=== PATIENT | female | born 1980 | race Caucasian/White ===

== ENCOUNTER 2017-09-29 17:11 | Inpatient (IN) | payer OTHER ==
[2017-09-29 18:13] LABS: HEMATOCRIT 43.5 % (36.0-47.0); MEAN CORPUSCULAR HEMOGLOBIN 32.6 pg (27.0-33.0); MEAN CORPUSCULAR HGB CONC 34.5 g/dl (32.0-36.5); MEAN CORPUSCULAR VOLUME 94.6 fl (80.0-96.0); PLATELET COUNT, AUTOMATED 288 10^3/uL (150-450); RED CELL DISTRIBUTION WIDTH 12.6 % (11.5-14.5); WHITE BLOOD COUNT 5.9 10^3/uL (4.0-10.0)
[2017-09-29 18:29] LABS: CONTROL LINE HCG INT CTR LINE PRESENT; HCG, SERUM QUALITATIVE NEGATIVE (NEGATIVE)
[2017-09-29 18:34] LABS: AMPHETAMINES LEVEL URINE POSITIVE (NEGATIVE); BARBITURATES URINE NEGATIVE (NEGATIVE); BENZODIAZEPINES URINE NEGATIVE (NEGATIVE); CANNABINOIDS URINE POSITIVE (NEGATIVE); COCAINE METABOLITE URINE NEGATIVE (NEGATIVE); METHADONE URINE NEGATIVE (NEGATIVE); OPIATES URINE NEGATIVE (NEGATIVE); PHENCYCLIDINE URINE NEGATIVE (NEGATIVE)
[2017-09-29 18:45] LABS: ACETAMINOPHEN LEVEL 2.5 UG/ML (10.0-30.0); ALBUMIN 3.7 GM/DL (3.2-5.2); ALBUMIN/GLOBULIN RATIO 0.95 (1.00-1.93); ALKALINE PHOSPHATASE 177 U/L (45-117); ALT/SGPT 73 U/L (12-78); ANION GAP 10 MEQ/L (8-16); AST/SGOT 99 U/L (7-37); BILIRUBIN,DIRECT 0.1 MG/DL (0.0-0.2); BILIRUBIN,TOTAL 0.2 MG/DL (0.2-1.0); BLOOD UREA NITROGEN 10 MG/DL (7-18); CALCIUM LEVEL 8.6 MG/DL (8.5-10.1); CARBON DIOXIDE LEVEL 24 MEQ/L (21-32); CHLORIDE LEVEL 110 MEQ/L (98-107); CREATININE FOR GFR 0.64 MG/DL (0.55-1.30); ETHYL ALCOHOL (ETHANOL) 0.153 % (0.000-0.010); GLOMERULAR FILTRATION RATE > 60.0 (>60); GLUCOSE, FASTING 101 MG/DL (70-100); POTASSIUM SERUM 4.3 MEQ/L (3.5-5.1); SALICYLATE LEVEL 3.6 MG/DL (5.0-30.0); SODIUM LEVEL 144 MEQ/L (136-145); TOTAL PROTEIN 7.6 GM/DL (6.4-8.2)
[2017-09-29] MEDS: LORazepam 1 MG TAB PO (19:31)
[2017-09-29] MEDS ORDERED: MAALOX 30 ML SUSP *UDC PO (20:30)
[2017-09-29] MEDS: lamoTRIgine 100MG TAB PO (21:00)
[2017-09-29] MEDS: cloNIDine 0.1 MG TAB PO (21:00)
[2017-09-29] MEDS: ACETAMINOPHEN TAB 650MG DOSE (2X325MG) PO (21:21)
[2017-09-29] MEDS: LORazepam 2 MG TAB PO (23:27)
[2017-09-29] MEDS: METOPROLOL SUCC (TopROL XL) 50MG **XL** TAB PO (23:28)
[2017-09-29] MEDS: traZODone 50 MG TAB PO (23:28)
[2017-09-30] MEDS: cloNIDine 0.1 MG TAB PO ×2 (08:10→21:09)
[2017-09-30] MEDS: lamoTRIgine 100MG TAB PO ×2 (08:11→21:06)
[2017-09-30] MEDS ORDERED: FLUTICASONE PROP 0.05% NASAL SPRAY 16 GM (FLONASE) (11:30)
[2017-09-30] MEDS: valACYclovir HCL 500 MG TAB PO (11:52)
[2017-09-30] MEDS: LISINOPRIL 10 MG TAB PO (11:52)
[2017-09-30] MEDS: ACETAMINOPHEN TAB 650MG DOSE (2X325MG) PO (11:53)
[2017-09-30] MEDS: OMEPRAZOLE 20 MG CAP PO (11:53)
[2017-09-30] MEDS: LORATADINE 10 MG TAB PO (11:53)
[2017-09-30] MEDS: VITAMIN D 1,000 INTERNATIONAL UNITS TABLET PO (11:53)
[2017-09-30] MEDS ORDERED: hydrOXYzine 25 MG TAB PO (13:30)
[2017-09-30] MEDS: traZODone 50 MG TAB PO (21:05)
[2017-09-30] MEDS: lamoTRIgine 25 MG TAB PO (21:05)
[2017-10-01] MEDS: OMEPRAZOLE 20 MG CAP PO (08:06)
[2017-10-01] MEDS: cloNIDine 0.1 MG TAB PO ×2 (08:06→21:22)
[2017-10-01] MEDS: LORATADINE 10 MG TAB PO (08:06)
[2017-10-01] MEDS: lamoTRIgine 100MG TAB PO ×2 (08:07→21:58)
[2017-10-01] MEDS: VITAMIN D 1,000 INTERNATIONAL UNITS TABLET PO (08:07)
[2017-10-01] MEDS: valACYclovir HCL 500 MG TAB PO (08:07)
[2017-10-01] MEDS: LISINOPRIL 10 MG TAB PO (08:07)
[2017-10-01] MEDS: lamoTRIgine 25 MG TAB PO ×2 (08:07→21:22)
[2017-10-01] MEDS: tiZANidine 4 MG TAB PO ×2 (14:02→21:22)
[2017-10-01] MEDS: traZODone 50 MG TAB PO (21:22)
[2017-10-01] MEDS: MOM 30ML SUSPENSION UDC PO (21:23)
[2017-10-02] MEDS: OMEPRAZOLE 20 MG CAP PO (08:24)
[2017-10-02] MEDS: valACYclovir HCL 500 MG TAB PO (08:24)
[2017-10-02] MEDS: cloNIDine 0.1 MG TAB PO ×2 (08:24→22:08)
[2017-10-02] MEDS: LORATADINE 10 MG TAB PO (08:24)
[2017-10-02] MEDS: LISINOPRIL 10 MG TAB PO (08:24)
[2017-10-02] MEDS: lamoTRIgine 100MG TAB PO ×2 (08:24→22:08)
[2017-10-02] MEDS: VITAMIN D 1,000 INTERNATIONAL UNITS TABLET PO (08:24)
[2017-10-02] MEDS: lamoTRIgine 25 MG TAB PO ×2 (08:25→22:07)
[2017-10-02 08:40] LABS: GLUCOSE, FASTING 97 MG/DL (70-100)
[2017-10-02] MEDS: ACETAMINOPHEN TAB 650MG DOSE (2X325MG) PO (10:18)
[2017-10-02] MEDS: AUGMENTIN 875 MG TAB PO (22:13)
[2017-10-03 07:51] LABS: ALBUMIN 3.9 GM/DL (3.2-5.2); ALBUMIN/GLOBULIN RATIO 1.08 (1.00-1.93); ALKALINE PHOSPHATASE 149 U/L (45-117); ALT/SGPT 73 U/L (12-78); AST/SGOT 97 U/L (7-37); BILIRUBIN,DIRECT 0.2 MG/DL (0.0-0.2); BILIRUBIN,TOTAL 0.4 MG/DL (0.2-1.0); TOTAL PROTEIN 7.5 GM/DL (6.4-8.2)
[2017-10-03] MEDS: LISINOPRIL 10 MG TAB PO (08:17)
[2017-10-03] MEDS: lamoTRIgine 25 MG TAB PO (08:17)
[2017-10-03] MEDS: lamoTRIgine 100MG TAB PO (08:17)
[2017-10-03] MEDS: amLODIPine 5 MG TAB PO (08:18)
[2017-10-03] MEDS: VITAMIN D 1,000 INTERNATIONAL UNITS TABLET PO (08:18)
[2017-10-03] MEDS: OMEPRAZOLE 20 MG CAP PO (08:18)
[2017-10-03] MEDS: valACYclovir HCL 500 MG TAB PO (08:18)
[2017-10-03] MEDS: AUGMENTIN 875 MG TAB PO (08:18)
[2017-10-03] MEDS: cloNIDine 0.1 MG TAB PO (08:18)
[2017-10-03] MEDS: LORATADINE 10 MG TAB PO (08:18)
[2017-10-03] MEDS: ACETAMINOPHEN TAB 650MG DOSE (2X325MG) PO (11:56)
[2017-10-03 14:11] LABS: LAMOTRIGINE (LAMICTAL) 3.8 ug/mL (2.0-20.0)
== END 2017-10-03 13:05 | disposition home or self-care (01) | DRG 885 ==
LOC: M PSY 09-30 20:01 → M ED 17:11 → M ED INP 20:18 → M PSY 21:36
DX: F31.4 Bipolar disorder, current episode depressed, severe, without psychotic features (principal); R45.851 Suicidal ideations; F10.10 Alcohol abuse, uncomplicated; K21.9 Gastro-esophageal reflux disease without esophagitis; R94.5 Abnormal results of liver function studies; B00.9 Herpesviral infection, unspecified; J32.0 Chronic maxillary sinusitis; I10 Essential (primary) hypertension; Z79.899 Other long term (current) drug therapy; Z88.5 Allergy status to narcotic agent; Z91.030 Bee allergy status; Z91.048 Other nonmedicinal substance allergy status; Z98.84 Bariatric surgery status; Z90.49 Acquired absence of other specified parts of digestive tract; Z98.51 Tubal ligation status

== ENCOUNTER → 2019-05-31 | Outpatient (REF) | payer OTHER ==
[~2019-05-31] MED LIST: ADDE1TAB14 PO; AMLO5TAB6 PO; AMOX875T2 PO; ARIP1TAB6 PO; B121000T PO; BUPR75TA5 PO; CLAR10CA3 PO; CLON-412 PO; CRAN1CAP9 PO; CRAN500C2 PO; DEXT15CA5 PO; FLON1SPR; HYDR-3363 PO; LAMI1TAB8 PO; LAMI25TA PO; LAMO100T3 PO; LAMO100T80 PO; LATU120T PO; LISI10TA4 PO; LORA10TA3 PO; OMEP40CA97 PO; TIZA4CAP PO; TIZA4CAP6 PO; TOPI25TA10 PO; TRAZ-252 PO; VALA500T5 PO; VALT500T PO; VITA100067 PO; VITA500C24 PO; VITA500S3 SL; VITACRY3 PO; vit d PO
== END ==
LOC: M LAB LCGH 17:35
PROVIDERS: ATTEND Surgery
DX: R10.13 Epigastric pain (principal); R10.32 Left lower quadrant pain